=== PATIENT | female | born 1990 | race Caucasian/White ===

== ENCOUNTER 2021-11-06 08:37 | Emergency (ER) | payer BC, SELFPAY ==
--- NOTE | 2021-11-06 08:43 | ED.GENADULT ---
HPI - General Adult General Chief complaint: Sore Throat Stated complaint: FLU LIKE SYMPTOMS Time Seen by Provider: 11/06/21 08:42 Source: patient History of Present Illness HPI narrative: This 31-year-old female comes in reporting sore throat and cough for more than a week. She was seen a week ago and tested negative for strep and COVID. She presented to her primary physician a couple days ago who prescribed a cephalosporin. She states that her symptoms have not improved at all. She does not report any fevers or shortness of breath. She states her primary complaint is cough and sore throat. She also reports some purulence drainage from her eyes but does not have any currently. Related Data Home Medications Medication Instructions Recorded Confirmed cefdinir 300 mg capsule mg 11/06/21 Previous Rx's Medication Instructions Recorded acetaminophen 300 mg-codeine 30 mg 1 tab PO Q6H PRN #15 tab 11/06/21 tablet ketorolac 10 mg tablet 10 mg PO TID 5 Days #15 tab 11/06/21 polymyxin B sulfate 10,000 1 drp OPHTHALMIC (EYE) Q3H #10 ml 11/06/21 unit-trimethoprim 1 mg/mL eye drops (Polytrim) Allergies Allergy/AdvReac Type Severity Reaction Status Date / Time No Known Drug Allergies Allergy Verified 11/06/21 08:49 Review of Systems Status of ROS: Reports: 10 or more systems reviewed and unremarkable except as noted in History and below Const: Denies: fever or chills Eyes: Denies: change in vision ENMT: Reports: throat pain; Denies: neck pain, throat swelling, difficulty swallowing, ear pain or nasal congestion Cardio: Denies: chest pain, palpitations, shortness of breath with exertion or shortness of breath when lying down Resp: Reports: cough; Denies: shortness of breath or chest congestion GI: Denies: abdominal pain, nausea, vomiting, diarrhea or difficulty swallowing : Denies: painful urination, urinary frequency or blood in urine Musculo: Denies: back pain, neck pain, extremity pain or extremity swelling Integ/Breast: Denies: rash or itching Neuro: Denies: headache, numbness in extremities, weakness in extremities or dizziness Psych: Denies: anxiety or suicidal ideation Endo: Denies: excessive urination or excessive thirst Papo/Lymph: Denies: easy bruising, easy bleeding or enlarged lymph nodes Allergy/Immuno: Denies: hives, throat swelling or tongue swelling PFSH [facility] Social History Smoking Status: Unknown if ever smoked Do you use any of these nicotine containing products: None How often do you have a drink containing alcohol: monthly or less How often do you have six or more drinks on one occasion: Never AUDIT-C Alcohol total score: 1 Non-prescribed substance use: denies use Exam Const: Vital Signs, click to edit/add: Vital Signs - 24 hr 11/06/21 08:49 Temperature 97.8 F Pulse Rate [Left P ulse Oximeter] 88 Respiratory Rate 18 Blood Pressure [Ri ght Upper Arm] 115/92 H Pulse Oximetry 98 Common normals: no apparent distress and oriented x3 General appearance: cooperative, comfortable and well kempt Orientation/consciousness: Yes awake HENMT: Common normals: normocephalic, external ears normal, TM's normal bilaterally and external nose normal Head and scalp: normal to inspection and normocephalic Face and sinus: normal facial exam Nose: external nose normal External ear: external ears normal Tympanic membrane: TM's normal bilaterally Mouth: oral and palatal mucosa normal Other: Pharyngeal erythema without exudate. Eye: Common normals: PERRL and EOMs intact bilaterally General eye: normal appearance of both eyes Visual acuity: acuity normal Alignment: alignment normal Pupil: PERRL Neck & C-Spine: Common normals: full ROM General: normal visual inspection Cervical spine: cervical ROM normal Lymph: Lymphatic: no lymphadenopathy noted Chest: Common normals: inspection of chest normal Resp: Common normals: normal respiratory effort, no use of accessory muscles and clear to auscultation bilaterally Effort & inspection: able to speak in complete sentences Auscultation: clear to auscultation bilaterally Cardio: Common normals: regular rate, regular rhythm, no murmurs and peripheral pulses 2+ throughout Rate: regular rate Rhythm: regular rhythm Peripheral pulses: pulses 2+ throughout GI: Common normals: Normal to inspection, nondistended, normoactive bowel sounds present and non-tender : Common normals: no CVA tenderness Bladder/kidney exam: no CVA tenderness Back & Pelvis: Common normals: no CVA tenderness and thoracic and lumbar spine normal to inspection Thoracic spine/upper back: normal to inspection Lumbar spine/lower back: normal to inspection Extremity: Common normals: normal to inspection and full ROM Neuro: Common normals: oriented x3, CN's II-XII intact bilaterally and no focal motor deficits Sensorium/orientation: awake Speech: speech normal Psych: Common normals: mental status grossly normal Appearance: well kempt Skin: Common normals: no rashes or lesions noted and skin turgor normal General skin exam: no rashes or lesions noted and turgor normal Course Vital Signs Vital signs: Initial Vital Signs Temperature 97.8 F 11/06/21 08:49 Temperature Source Temporal Artery Scan 11/06/21 08:49 Pulse Rate 88 11/06/21 08:49 Respiratory Rate 18 11/06/21 08:49 Blood Pressure 115/92 H 11/06/21 08:49 Blood Pressure Mean 99 11/06/21 08:49 Blood Pressure Position Sitting 11/06/21 08:49 Pulse Oximetry 98 11/06/21 08:49 Oxygen Delivery Method 11/06/21 08:49 Vital Signs Temperature 97.8 F 11/06/21 08:49 Pulse Rate 88 11/06/21 08:49 Respiratory Rate 18 11/06/21 08:49 Blood Pressure 115/92 H 11/06/21 08:49 Pulse Oximetry 98 11/06/21 08:49 Temperature 97.8 F 11/06/21 08:49 Pulse Rate 88 11/06/21 08:49 Respiratory Rate 18 11/06/21 08:49 Blood Pressure 115/92 H 11/06/21 08:49 Pulse Oximetry 98 11/06/21 08:49 Medical Decision Making [facility] Narrative Medical decision making narrative: This patient comes in with persistent upper respiratory symptoms as described above. She has completed a course of steroid and is currently taking a cephalosporin antibiotic. Her symptoms have not improved. She was tested for COVID and strep and both of these were negative. Her exam today and vital signs are reassuring despite not feeling well. I discussed lab and imaging options which might be redundant given her previous testing and normal exam and current treatment with an antibiotic. She declined any further testing at this time. Most likely she is experiencing symptoms from a virus. I did prescribe Toradol, Tylenol 3, and Polytrim. Discharge Plan Discharge Clinical Impression: Acute upper respiratory infection Patient Disposition: Home, Self-Care Condition: Unchanged Instructions: Viral Syndrome (ED) Additional Instructions: Take medication as needed and indicated. Follow up with MD or return if worsening. Prescriptions: New acetaminophen-codeine 300-30 mg tablet 1 tab PO Q6H PRN (Reason: pain) Qty: 15 0RF ketorolac 10 mg tablet 10 mg PO TID 5 Days Qty: 15 0RF polymyxin B sulf-trimethoprim [Polytrim] 10,000 unit- 1 mg/mL drops 1 drp ophthalmic (eye) Q3H Qty: 10 0RF Rx Instructions: while awake; do not exceed 6 doses in 24 hours No Action cefdinir 300 mg capsule 0RF Follow Up/Referrals: Gloria Puga MD [Primary Care Provider] - Stand Alone Forms: [employer] Info Instructions
[2021-11-06 08:49] VITALS: BP 115/92; PULSE 88; RESP 18; TEMP 36.6; O2SAT 98
== END 2021-11-06 09:46 | disposition home or self-care (01) ==
LOC: ED 09:32
PROVIDERS: Emergency Provider Emergency Medicine Emergency Medical Services; PCP Family Medicine
DX: J06.9 Acute upper respiratory infection, unspecified (principal)
CPT/HCPCS: 99283; 99284

== ENCOUNTER 2023-01-14 04:52 | Emergency (ER) | payer BC, SELFPAY ==
[2023-01-14 05:08] VITALS: BP 140/77; PULSE 81; RESP 24; TEMP 36.6; O2SAT 99; BMI 26.2
--- NOTE | 2023-01-14 05:26 | CRLHL7_ITS ---
For Patients: As a result of the Century Cures Act, medical imaging exams and procedure reports are released immediately into your electronic medical record. You may view this report before your referring provider. If you have questions, please contact your health care provider. INDICATION: Severe abdomen/pelvis pain, right upper quadrant. Postop diagnostic replacement of IUD yesterday. TECHNIQUE: CT of the abdomen and pelvis with 68 cc Isovue 370 IV contrast. Coronal and sagittal reconstructions. COMPARISON: None. FINDINGS: The liver, gallbladder, spleen, pancreas, and adrenal glands are negative. No biliary dilation. Portal veins are patent. Symmetric enhancement of the kidneys. No hydronephrosis or ureteral dilation. No obstructing urinary calculi identified. The bladder is normal in appearance. IUD in the uterus. There is a 1.8 cm rim enhancing cystic lesion in the right ovary which likely represents a corpus luteum (series 2, image 110). No small bowel dilation. Large amount of stool throughout the colon. Surgical clips along the cecum likely related to appendectomy. There is fat stranding in the pelvic cul-de-sac posterior to the uterus. No significant free fluid. Small amount of intraperitoneal free air predominantly in the upper abdomen. Small fat containing umbilical hernia. No lymphadenopathy. The bones are unremarkable. The lung bases are clear. IMPRESSION: 1. Small amount of intraperitoneal free air likely related to recent surgery. There is also fat stranding in the pelvic cul-de-sac posterior to the uterus. 2. Large amount of stool. 3. Corpus luteal cyst in the right ovary. 4. Findings discussed with Tory Card at 8:38 a.m. on 01/14/2023. Please note that all CT scans at this facility use dose modulation, iterative reconstruction, and/or weight-based dosing when appropriate to reduce radiation dose to as low as reasonably achievable. Dictated by Henny Starr MD @ 01/14/2023 8:41:13 AM (Electronically Signed)
--- NOTE | 2023-01-14 05:28 | ED.GENADULT ---
HPI - General Adult General Chief complaint: Post Op Complication <Mariam Guillen MD - Last Filed: 01/16/23 00:03> Stated complaint: right abdominal, shoulder pain <Mariam Guillen MD - Last Filed: 01/16/23 00:03> Time Seen by Provider: 01/14/23 05:15 <Mariam Guillen MD - Last Filed: 01/16/23 00:03> Source: patient <Mariam Guillen MD - Last Filed: 01/16/23 00:03> Mode of arrival: ambulatory <Mariam Guillen MD - Last Filed: 01/16/23 00:03> History of Present Illness HPI narrative: 32-year-old female presents the emergency department with 12 hour history of right upper quadrant abdominal pain radiating up to the right shoulder. She underwent a pelvic laparoscopy yesterday at an outpatient surgery center affiliated with [facility] per her report. She states that she was discharged home with no complications. She had been home about 30 minutes when she started having this type of pain, it started just after she ate. She tried taking ibuprofen and oxycodone and it got a little bit better and has come back intermittently through the night. She reports that the pain is excruciating. She tried taking 5 mg of oxycodone and ibuprofen again early this morning and it is not improving her symptoms. It is worse if she lays down. No nausea. No new trauma or injury since the surgery. No shortness of breath or chest pain. No fever. She is having some vaginal spotting which she reports is expected, but no heavy bleeding. No prior history of similar symptoms. Positive history of gallbladder disease in the family. She was not warned of this type of pain postoperatively per her report. She did not try calling her surgeon. I do not have her operative report. Past medical history she reports is relatively benign other than this ongoing pelvic pain. Denies long-term medications. Nonsmoker. ROS notable for the GI and musculoskeletal symptoms as described above, otherwise denies times 12 systems. <Mariam Guillen MD - Last Filed: 01/16/23 00:03> Related Data Home medications: Home Medications Medication Instructions Recorded Confirmed cefdinir 300 mg capsule mg 11/06/21 Previous Rx's Medication Instructions Recorded acetaminophen 300 mg-codeine 30 mg 1 tab PO Q6H PRN pain #15 tabs 11/06/21 tablet ketorolac 10 mg tablet 10 mg PO TID 5 days #15 tabs 11/06/21 polymyxin B sulfate 10,000 1 drp ophthalmic (eye) Q3H #10 mL 11/06/21 unit-trimethoprim 1 mg/mL eye drops (Polytrim) hydroxyzine HCl 25 mg tablet 25 mg PO QID PRN #10 tabs 01/14/23 oxycodone 5 mg tablet 5 mg PO Q6H PRN pain #10 tabs 01/14/23 <Mariam Guillen MD - Last Filed: 01/16/23 00:03> Allergies/adverse reactions: Allergies Allergy/AdvReac Type Severity Reaction Status Date / Time Penicillins AdvReac yeast Verified 01/14/23 06:02 infection <Mariam Guillen MD - Last Filed: 01/16/23 00:03> PFS PFSH Social History: Social History Smoking Status: Unknown if ever smoked Do you use any of these nicotine containing products: None How often do you have a drink containing alcohol: monthly or less How often do you have six or more drinks on one occasion: Never AUDIT-C Alcohol total score: 1 Non-prescribed substance use: denies use service: No <Mariam Guillen MD - Last Filed: 01/16/23 00:03> Exam Const: Vital Signs, click to edit/add: Vital Signs - 24 hr 01/14/23 05:08 Temperature 97.9 F Pulse Rate [Left P ulse Oximeter] 81 Respiratory Rate 24 Blood Pressure [Ri ght Upper Arm] 140/77 H Pulse Oximetry 99 Oxygen Delivery Me thod Room Air <Mariam Guillen MD - Last Filed: 01/16/23 00:03> Vital Signs, click to edit/add: Vital Signs - 24 hr 01/14/23 05:08 Temperature 97.9 F Pulse Rate [Left P ulse Oximeter] 81 Respiratory Rate 24 Blood Pressure [Ri ght Upper Arm] 140/77 H Pulse Oximetry 99 Oxygen Delivery Me thod Room Air <Tory Stoner MD - Last Filed: 01/14/23 08:58> Documenting provider has reviewed patient's vital signs: yes <Mariam Guillen MD - Last Filed: 01/16/23 00:03> Other: Writhing in pain, difficult to redirect. Does not appear acutely ill. Well nourished and well hydrated. <Mariam Guillen MD - Last Filed: 01/16/23 00:03> HENMT: Common normals: normocephalic <MD Angelica Arredondo Last Filed: 01/16/23 00:03> Head and scalp: normocephalic <MD Angelica Arredondo Last Filed: 01/16/23 00:03> Face and sinus: normal facial exam <MD Angelica Arredondo Last Filed: 01/16/23 00:03> Mouth: oral and palatal mucosa normal <MD Angelica Arredondo Last Filed: 01/16/23 00:03> Eye: Common normals: conjunctivae normal and no scleral icterus <MD Angelica Arredondo Last Filed: 01/16/23 00:03> General eye: normal appearance of both eyes <MD Angelica Arredondo Last Filed: 01/16/23 00:03> Conjunctiva: conjunctiva(e) normal <MD Angelica Arredondo Last Filed: 01/16/23 00:03> Neck & C-Spine: Common normals: full ROM and no lymphadenopathy <MD Angelica Arredondo Last Filed: 01/16/23 00:03> Resp: Common normals: normal respiratory effort, no use of accessory muscles and clear to auscultation bilaterally <MD Angelica Arredondo Last Filed: 01/16/23 00:03> Effort & inspection: able to speak in complete sentences <MD Angelica Arredondo Last Filed: 01/16/23 00:03> Auscultation: clear to auscultation bilaterally <MD Angelica Arredondo Last Filed: 01/16/23 00:03> Cardio: Common normals: regular rate, regular rhythm, S1 normal heart sound, S2 normal heart sound and no murmurs <Mariam Guillen MD - Last Filed: 01/16/23 00:03> Rate: regular rate <Mariam Guillen MD - Last Filed: 01/16/23 00:03> Rhythm: regular rhythm <Mariam Guillen MD - Last Filed: 01/16/23 00:03> Heart sounds: S1 normal and S2 normal <Mariam Guillen MD - Last Filed: 01/16/23 00:03> GI: Common normals: Normal to inspection, nondistended, normoactive bowel sounds present <Mariam Guillen MD - Last Filed: 01/16/23 00:03> Other: No soaking of the surgical dressing. Bowel sounds are normoactive throughout. She is tender to palpation of the right upper quadrant more so than any other area that is diffusely tender throughout. Response dramatically to exam. Periumbilical port and lower laparoscopic ports appear without surrounding redness or drainage. <Mariam Guillen MD - Last Filed: 01/16/23 00:03> Extremity: Other: Upper lower extremities appear grossly normal. <Mariam Guillen MD - Last Filed: 01/16/23 00:03> Neuro: Speech: speech normal <Mariam Guillen MD - Last Filed: 01/16/23 00:03> Motor exam: no movement abnormalities noted <Mariam Guillen MD - Last Filed: 01/16/23 00:03> Psych: Attitude: engaged <Mariam Guillen MD - Last Filed: 01/16/23 00:03> Mood and affect: anxious <Mariam Guillen MD - Last Filed: 01/16/23 00:03> Skin: Narrative: Surgical scars as expected, no other areas of unexpected skin findings. <Mariam Guillen MD - Last Filed: 01/16/23 00:03> Course Course ED Course: Suspect diaphragmatic irritation from laparoscopic air but cannot exclude surgical complication, bleeding, infection, gallbladder disease, intestinal obstruction, among others. Counseled family on this. IV will be placed, will be given Toradol, oral oxycodone and Vistaril. Typical intra-abdominal labs and CT scan of the abdomen and pelvis to look for surgical complications. Vitals are stable, initial exam is overall reassuring. <Mariam Guillen MD - Last Filed: 01/16/23 00:03> Reevaluation(s) Time of Reevaluation #1: 06:30 <Mariam Guillen MD - Last Filed: 01/16/23 00:03> Reevaluation #1: Checked in on patient, noting marked improvement in pain after oxycodone, Vistaril and Toradol. Let her know there to be a delay for CT for a stroke patient and she was understanding. Labs reassuring. <Mariam Guillen MD - Last Filed: 01/16/23 00:03> Time of Reevaluation #2: 08:53 <Tory Stoner MD - Last Filed: 01/14/23 08:58> Reevaluation #2: Have reviewed with patient her CT findings. She is getting diaphragmatic irritation from air under the diaphragm. She is better now. We will go with the medication plan outlined by Dr. Guillen. <Tory Stoner MD - Last Filed: 01/14/23 08:58> Vital Signs Vital signs: Initial Vital Signs Temperature 97.9 F 01/14/23 05:08 Temperature Source Temporal Artery Scan 01/14/23 05:08 Pulse Rate 81 01/14/23 05:08 Pulse Rhythm Regular 01/14/23 05:08 Respiratory Rate 24 01/14/23 05:08 Blood Pressure 140/77 H 01/14/23 05:08 Blood Pressure Mean 98 01/14/23 05:08 Blood Pressure Position Sitting 01/14/23 05:08 Pulse Oximetry 99 01/14/23 05:08 Oxygen Delivery Method Room Air 01/14/23 05:08 Vital Signs Temperature 97.9 F 01/14/23 05:08 Pulse Rate 81 01/14/23 05:08 Respiratory Rate 24 01/14/23 05:08 Blood Pressure 140/77 H 01/14/23 05:08 Pulse Oximetry 99 01/14/23 05:08 Oxygen Delivery Method Room Air 01/14/23 05:08 Temperature 97.9 F 01/14/23 05:08 Pulse Rate 81 01/14/23 05:08 Respiratory Rate 24 01/14/23 05:08 Blood Pressure 140/77 H 01/14/23 05:08 Pulse Oximetry 99 01/14/23 05:08 Oxygen Delivery Method Room Air 01/14/23 05:08 <Mariam Guillen MD - Last Filed: 01/16/23 00:03> Initial Vital Signs Temperature 97.9 F 01/14/23 05:08 Temperature Source Temporal Artery Scan 01/14/23 05:08 Pulse Rate 81 01/14/23 05:08 Pulse Rhythm Regular 01/14/23 05:08 Respiratory Rate 24 01/14/23 05:08 Blood Pressure 140/77 H 01/14/23 05:08 Blood Pressure Mean 98 01/14/23 05:08 Blood Pressure Position Sitting 01/14/23 05:08 Pulse Oximetry 99 01/14/23 05:08 Oxygen Delivery Method Room Air 01/14/23 05:08 Vital Signs Temperature 97.9 F 01/14/23 05:08 Pulse Rate 81 01/14/23 05:08 Respiratory Rate 24 01/14/23 05:08 Blood Pressure 140/77 H 01/14/23 05:08 Pulse Oximetry 99 01/14/23 05:08 Oxygen Delivery Method Room Air 01/14/23 05:08 Temperature 97.9 F 01/14/23 05:08 Pulse Rate 81 01/14/23 05:08 Respiratory Rate 24 01/14/23 05:08 Blood Pressure 140/77 H 01/14/23 05:08 Pulse Oximetry 99 01/14/23 05:08 Oxygen Delivery Method Room Air 01/14/23 05:08 <Tory Stoner MD - Last Filed: 01/14/23 08:58> Medical Decision Making Lab Data Lab results reviewed: Yes I reviewed the patient's lab results <Mariam Guillen MD - Last Filed: 01/16/23 00:03> Labs: Lab Results 01/14/23 01/14/23 Range/Units 05:40 05:48 WBC 10.57 (4.50-11.00) K/uL RBC 4.34 (4.00-5.20) m/uL Hgb 13.2 (12.0-16.0) gm/dL Hct 38.4 (33.0-51.0) % MCV 89 (80-100) fL MCH 30 (26-34) pg MCHC 34 (32-36) gm/dL RDW Coeff of Mira 11.2 L (11.5-15.5) % Plt Count 204 (140-440) K/uL Neut % (Auto) 72.7 H (42.0-72.0) % Lymph % (Auto) 18.6 L (20-44) % [place] % (Auto) 8.1 (0.0-11.0) % Eos % (Auto) 0.3 (0.0-7.0) % Baso % (Auto) 0.2 (0.0-3.0) % Neut # (Auto) 7.70 H (1.7-7.0) K/uL Lymph # (Auto) 2.00 (0.90-2.90) K/uL [place] # (Auto) 0.90 (0.00-0.90) K/UL Eos # (Auto) 0.03 (0.00-0.50) K/uL Baso # (Auto) 0.02 (0.00-0.30) K/uL Abs Immat Gran (auto) 0.01 (0.00-0.30) K/uL Imm/Tot Granulo (auto) 0.1 % Sodium 139 (135-149) mmol/L Potassium 3.8 (3.6-5.1) mmol/L Chloride 109 (96-114) mmol/L Carbon Dioxide 20 (20-32) mmol/L Anion Gap 10 (7-15) mEq/L BUN 12 (5-24) mg/dL Creatinine 0.7 (0.5-1.5) mg/dL Estimated Creat Clear 85.45 Estimated GFR 116 ml/min Glucose 103 (60-115) mg/dL Lactate 0.9 (0.5-1.9) mmol/L Calcium 9.7 (8.4-10.6) mg/dL Total Bilirubin 0.6 (0.1-1.5) mg/dL AST 26 (12-35) U/L ALT 23 (4-35) U/L Alkaline Phosphatase 32 L (40-150) U/L C-Reactive Protein 2.0 H (0.5-1.0) mg/dL Total Protein 7.1 (6.0-8.3) g/dL Albumin 4.3 (3.3-5.0) g/dL Lipase 30 (23-300) U/L <Mariam Guillen MD - Last Filed: 01/16/23 00:03> Lab Results 01/14/23 01/14/23 Range/Units 05:40 05:48 WBC 10.57 (4.50-11.00) K/uL RBC 4.34 (4.00-5.20) m/uL Hgb 13.2 (12.0-16.0) gm/dL Hct 38.4 (33.0-51.0) % MCV 89 (80-100) fL MCH 30 (26-34) pg MCHC 34 (32-36) gm/dL RDW Coeff of Mira 11.2 L (11.5-15.5) % Plt Count 204 (140-440) K/uL Neut % (Auto) 72.7 H (42.0-72.0) % Lymph % (Auto) 18.6 L (20-44) % [place] % (Auto) 8.1 (0.0-11.0) % Eos % (Auto) 0.3 (0.0-7.0) % Baso % (Auto) 0.2 (0.0-3.0) % Neut # (Auto) 7.70 H (1.7-7.0) K/uL Lymph # (Auto) 2.00 (0.90-2.90) K/uL [place] # (Auto) 0.90 (0.00-0.90) K/UL Eos # (Auto) 0.03 (0.00-0.50) K/uL Baso # (Auto) 0.02 (0.00-0.30) K/uL Abs Immat Gran (auto) 0.01 (0.00-0.30) K/uL Imm/Tot Granulo (auto) 0.1 % Sodium 139 (135-149) mmol/L Potassium 3.8 (3.6-5.1) mmol/L Chloride 109 (96-114) mmol/L Carbon Dioxide 20 (20-32) mmol/L Anion Gap 10 (7-15) mEq/L BUN 12 (5-24) mg/dL Creatinine 0.7 (0.5-1.5) mg/dL Estimated Creat Clear 85.45 Estimated GFR 116 ml/min Glucose 103 (60-115) mg/dL Lactate 0.9 (0.5-1.9) mmol/L Calcium 9.7 (8.4-10.6) mg/dL Total Bilirubin 0.6 (0.1-1.5) mg/dL AST 26 (12-35) U/L ALT 23 (4-35) U/L Alkaline Phosphatase 32 L (40-150) U/L C-Reactive Protein 2.0 H (0.5-1.0) mg/dL Total Protein 7.1 (6.0-8.3) g/dL Albumin 4.3 (3.3-5.0) g/dL Lipase 30 (23-300) U/L <Tory Stoner MD - Last Filed: 01/14/23 08:58> Imaging Data CT scan - abdomen: Attestation: I have reviewed the pertinent imaging results. <Mariam Guillen MD - Last Filed: 01/16/23 00:03> My impression: Expected air bubbles postoperative. Other postoperative changes that do not seem pathological to me at this time. <Mariam Guillen MD - Last Filed: 01/16/23 00:03> Radiologist's impression: Patient: [facility] Facility:?[facility] Patient ID:?[id number] Site Patient ID:?[id number]. Site :?[id number] Study:?CT Abdomen/Pelvis W/68CC [id number]/23/2023 6:58:57 AM Ordering Physician:Venus Becerra Final Report: INDICATION: Severe abdomen/pelvis pain, right upper quadrant. Postop diagnostic laparoscopy with lysis of adhesions, hysteroscopy with D&C, and removal and replacement of IUD yesterday. TECHNIQUE: CT of the abdomen and pelvis with 68 cc Isovue 370 IV contrast. Coronal and sagittal reconstructions. COMPARISON: None. FINDINGS: The liver, gallbladder, spleen, pancreas, and adrenal glands are negative. No biliary dilation. Portal veins are patent. Symmetric enhancement of the kidneys. No hydronephrosis or ureteral dilation. No obstructing urinary calculi identified. The bladder is normal in appearance. IUD in the uterus. There is a 1.8 cm rim enhancing cystic lesion in the right ovary which likely represents a corpus luteum (series 2, image 110). No small bowel dilation. Large amount of stool throughout the colon. Surgical clips along the cecum likely related to appendectomy. There is fat stranding in the pelvic cul-de-sac posterior to the uterus. No significant free fluid. Small amount of intraperitoneal free air predominantly in the upper abdomen. Small fat containing umbilical hernia. No lymphadenopathy. The bones are unremarkable. The lung bases are clear. IMPRESSION: 1. Small amount of intraperitoneal free air likely related to recent surgery. There is also fat stranding in the pelvic cul-de-sac posterior to the uterus. 2. Large amount of stool. 3. Corpus luteal cyst in the right ovary. 4. Findings discussed with Tory Card at 8:38 a.m. on 01/14/2023. Please note that all CT scans at this facility use dose modulation, iterative reconstruction, and/or weight-based dosing when appropriate to reduce radiation dose to as low as reasonably achievable. Dictated by Henny Starr MD @ 01/14/2023 8:41:13 AM (Electronic Signature) <Tory Stoner MD - Last Filed: 01/14/23 08:58> Discharge Plan Discharge Clinical Impression: Post-operative pain <Mariam Guillen MD - Last Filed: 01/16/23 00:03> Patient Disposition: Home w/ Parent or Adult <Mariam Guillen MD - Last Filed: 01/16/23 00:03> Condition: Improved <Mariam Guillen MD - Last Filed: 01/16/23 00:03> Instructions: Pain Management After Surgery (DC) <Mariam Guillen MD - Last Filed: 01/16/23 00:03> Additional Instructions: This pain you are feeling is from diaphragmatic irritation from the laparoscopic surgery. There is still a small amount of air in the abdomen and is between the diaphragm and the liver on the right side. This is what is giving you your symptoms. You can try position changes, I have personally found that sometimes sitting upright more does help. This will continue to improve, would expect that you are not going to have much for symptoms within a week. It is usually the 1st few days that are the worst. Can take Tylenol 1000 mg 3 times a day baseline for pain, add in ibuprofen per bottle directions. Would recommend using ibuprofen right now something like 600 mg 3 to 4 times a day with food. I will give you a few more tablets of oxycodone as I do feel you are going to need it. Will also give you some hydroxyzine or Vistaril to use to help with pain management. There was stool buildup on the CT, using oxycodone is likely to make this worse as narcotics do potentiate constipation. Take MiraLax 17 g daily while on the oxycodone. May need to use senna per package instructions if the MiraLax is not enough. Goal is for a formed but soft daily stool. <Mariam Guillen MD - Last Filed: 01/16/23 00:03> Activity Level: Activity as Tolerated <Mariam Guillen MD - Last Filed: 01/16/23 00:03> Activity as Tolerated <Tory Stoner MD - Last Filed: 01/14/23 08:58> Discharge Diet: Regular <Mariam Guillen MD - Last Filed: 01/16/23 00:03> Regular <Tory Stoner MD - Last Filed: 01/14/23 08:58> Prescriptions: New oxycodone 5 mg tablet 5 mg PO Q6H PRN (Reason: pain) Qty: 10 0RF hydroxyzine HCl 25 mg tablet 25 mg PO QID PRNQty: 10 0RF No Action cefdinir 300 mg capsule acetaminophen-codeine 300-30 mg tablet 1 tab PO Q6H PRN (Reason: pain) Qty: 15 0RF ketorolac 10 mg tablet 10 mg PO TID 5 Days Qty: 15 0RF polymyxin B sulf-trimethoprim [Polytrim] 10,000 unit- 1 mg/mL drops 1 drp ophthalmic (eye) Q3H Qty: 10 0RF Rx Instructions: while awake; do not exceed 6 doses in 24 hours <Mariam Guillen MD - Last Filed: 01/16/23 00:03> Follow Up/Referrals: Jess Posada MD [Primary Care Provider] - <Mariam Guillen MD - Last Filed: 01/16/23 00:03> Stand Alone Forms: [facility] Info Instructions <Mariam Guillen MD - Last Filed: 01/16/23 00:03>
[2023-01-14] MEDS: hydrOXYzine pamoate 25 MG CAPSULE PO (05:37)
[2023-01-14] MEDS: KETOROLAC 15 MG/ML inj IVP (05:41)
[2023-01-14] MEDS: OXYCODONE 5 MG TABLET 10 MG PO (05:50)
[2023-01-14 05:52] LABS: Lactate* 0.9 mmol/L (0.5-1.9)
[2023-01-14 05:52] LABS: Basophils Absolute Auto 0.02 K/uL (0.00-0.30); Basophils Percent Auto 0.2 % (0.0-3.0); Eosinophils Absolute Auto 0.03 K/uL (0.00-0.50); Eosinophils Percent Auto 0.3 % (0.0-7.0); Hematocrit 38.4 % (33.0-51.0); Hemoglobin* 13.2 gm/dL (12.0-16.0); Immature Granulocytes Abs Auto 0.01 K/uL (0.00-0.30); Immature Granulocytes Pct Auto 0.1 %; Lymphocytes Percent Auto 18.6 % (20-44); Mean Corpuscular HGB Conc 34 gm/dL (32-36); Mean Corpuscular Hemoglobin 30 pg (26-34); Mean Corpuscular Volume 89 fL (80-100); Monocytes Percent Auto 8.1 % (0.0-11.0); Neutrophils Percent Auto 72.7 % (42.0-72.0); Platelet Count* 204 K/uL (140-440); RDW Coefficient of Variation % 11.2 % (11.5-15.5); Red Blood Count 4.34 m/uL (4.00-5.20); White Blood Count* 10.57 K/uL (4.50-11.00)
[2023-01-14 05:54] LABS: Slide Review Reflex No
[2023-01-14 06:10] LABS: Albumin* 4.3 g/dL (3.3-5.0); Chloride* 109 mmol/L (96-114)
[2023-01-14 06:11] LABS: Potassium* 3.8 mmol/L (3.6-5.1); Sodium* 139 mmol/L (135-149)
[2023-01-14 06:13] LABS: Alkaline Phosphatase* 32 U/L (40-150); Anion Gap 10 mEq/L (7-15); Aspartate Amino Transferase* 26 U/L (12-35); Bilirubin Total* 0.6 mg/dL (0.1-1.5); Carbon Dioxide* 20 mmol/L (20-32); Creatinine* 0.7 mg/dL (0.5-1.5); Est. Creatinine Clearance* 85.45; Estimated Glomerular Filt Rate 116 ml/min; Total Protein* 7.1 g/dL (6.0-8.3)
[2023-01-14 06:14] LABS: Alanine Aminotransferase* 23 U/L (4-35); Blood Urea Nitrogen* 12 mg/dL (5-24); Calcium* 9.7 mg/dL (8.4-10.6); Glucose* 103 mg/dL (60-115); Lipase* 30 U/L (23-300)
--- NOTE | 2023-01-14 14:54 | ED.NURSE ---
Patient called as pharmacy does not have prescriptions that were sent this am. Notes she is at [facility] pharmacy. Patient informed [facility] was listed as preferred, prescriptions sent there. She verbalizes understanding, notes she will go to [facility] to picker packer prescriptions.
== END 2023-01-14 09:35 | disposition home or self-care (01) ==
PROVIDERS: Emergency Provider Family Medicine; PCP Family Medicine
DX: G89.18 Other acute postprocedural pain (principal)
CPT/HCPCS: 36415; 74177; 80053; 83605; 83690; 85025; 86140; 96374; 99283; 99284; A9270; J1885; Q9967